=== PATIENT | male | born 1960 | race American Indian/Alaskan Native ===

== ENCOUNTER 2019-12-28 22:40 | Emergency (ER) | payer SELFPAY ==
--- NOTE | 2019-12-28 23:09 | Emergency Department Report ---
<DEENA ROSE - Last Filed: 12/29/19 14:22> ED Altered Mental Status HPI - General Stated Complaint: ALTERED Time Seen by Provider: 12/28/19 23:00 - Related Data Home Medications Medication Instructions Recorded Confirmed Last Taken Unobtainable 12/29/19 12/29/19 Unknown Allergies Allergy/AdvReac Type Severity Reaction Status Date / Time Unable to Assess Allergy Unverified 12/28/19 23:58 ED Past Medical Hx - Medications Home Medications: Home Medications Medication Instructions Recorded Confirmed Last Taken Type Unobtainable 12/29/19 12/29/19 Unknown History ED Course - Reevaluation(s) Reevaluation #2: 12/29/19 14:22 repeat alcohol pending. pt s/o to DR [employer]ar bardales to f/u and dispo once sober. pt does not have anyone to pick him up. - Lab Data Result diagrams: 12/28/19 23:20 12/28/19 23:20 ED Disposition Clinical Impression: Altered mental state Qualifiers: Altered mental status type: unspecified Qualified Code(s): R41.82 - Altered mental status, unspecified Acute alcohol intoxication Qualifiers: Complication of substance-induced condition: uncomplicated Qualified Code(s): F10.920 - Alcohol use, unspecified with intoxication, uncomplicated Disposition: DC-01 TO HOME OR SELFCARE Condition: Stable Instructions: Alcohol Intoxication (ED) Referrals: PRIMARY CARE,MD [Primary Care Provider] - 2-3 Days <FLAKO ESTRELLA - Last Filed: 12/29/19 17:23> - Lab Data Result diagrams: 12/28/19 23:20 12/28/19 23:20 ED Disposition Is pt being admited?: No <JUSTINE CHAUHAN III - Last Filed: 12/29/19 22:31> ED Altered Mental Status HPI - General PUI?: No Source: patient, EMS Mode of arrival: Ambulatory Limitations: Other - History of Present Illness Initial Comments: Patient is a 59-year-old male that presents emergency room for altered mental status. Patient patient states he was at his neighbor's house and he was drinking. Patient states he is here because he is drunk. Patient denies pain. Patient denies chest pain. Patient denies head trauma. Patient denies syncopal episode. Report from EMS states that the patient may have had a syncopal episode. MD Complaint: confusion, intoxication -: Sudden Consistency of Symptoms: waxing and waning Context: alcohol abuse Associated Symptoms: denies other symptoms ED Review of Systems ROS: Stated complaint: ALTERED Other details as noted in HPI Comment: All other systems reviewed and negative ED Past Medical Hx - Past Medical History Previous Medical History?: Yes Additional medical history: Alcoholism - Surgical History Past Surgical History?: No - Family History Family history: no significant - Social History Smoking Status: Current Every Day Smoker Substance Use Type: Alcohol ED Physical Exam - General Limitations: Other General appearance: alert, in no apparent distress - Head Head exam: Present: atraumatic, normocephalic - Eye Eye exam: Present: normal appearance - ENT ENT exam: Present: mucous membranes moist - Neck Neck exam: Present: normal inspection - Respiratory Respiratory exam: Present: normal lung sounds bilaterally. Absent: respiratory distress - Cardiovascular Cardiovascular Exam: Present: regular rate, normal rhythm. Absent: systolic murmur, diastolic murmur, rubs, gallop - GI/Abdominal GI/Abdominal exam: Present: soft, normal bowel sounds - Rectal Rectal exam: Present: deferred - Extremities Exam Extremities exam: Present: normal inspection - Back Exam Back exam: Present: normal inspection - Neurological Exam Neurological exam: Present: alert, oriented X3 - Psychiatric Psychiatric exam: Present: normal affect, normal mood - Skin Skin exam: Present: warm, dry, intact, normal color. Absent: rash - Assessment Assessment Interval: Baseline - Level of Consciousness 1a. Level of Consciousness: alert/keenly responsive - LOC Questions 1b. LOC Questions: answers both correctly - LOC Command 1c. LOC Commands: performs tasks correctly - Best Gaze 2. Best Gaze: normal - Visual 3. Visual: no visual loss - Facial Palsy 4. Facial Palsy: normal symmetrical movement - Motor Arm 5a. Motor Arm Left: no drift 5b. Motor Arm Right: no drift - Motor Leg 6a. Motor Leg Left: no drift 6b. Motor Leg Right: no drift - Limb Ataxia 7. Limb Ataxia: absent - Sensory 8. Sensory: normal - Best Language 9. Best Language: no aphasia - Dysarthria 10. Dysarthria: normal - Extinction and Inattention 11. Extinction/Inattention: no abnormality - Scoring Total Score: 0 Stroke Severity: No Stroke Symptoms ED Course Vital Signs 12/28/19 12/28/1912/27/20 22:48 22:56 23:00 Temperature 97.8 F Pulse Rate 75 63 72 Respiratory 14 13 13 Rate Blood Pressure 183/84 Blood Pressure 183/84 [Right] O2 Sat by Pulse 98 97 Oximetry 12/28/19 12/28/19 12/28/19 23:16 23:20 23:30 Temperature Pulse Rate 78 68 Respiratory 13 14 15 Rate Blood Pressure Blood Pressure [Right] O2 Sat by Pulse 98 Oximetry 12/28/19 12/29/19 12/29/19 23:46 00:00 00:16 Temperature Pulse Rate 64 80 71 Respiratory 18 17 Rate Blood Pressure 131/69 135/97 Blood Pressure [Right] O2 Sat by Pulse 95 Oximetry 12/29/19 12/29/19 12/29/19 00:30 00:45 01:00 Temperature Pulse Rate 78 60 65 Respiratory 12 13 11 L Rate Blood Pressure 135/97 127/59 136/66 Blood Pressure [Right] O2 Sat by Pulse Oximetry 12/29/19 12/29/19 12/29/19 01:15 01:30 01:50 Temperature Pulse Rate 69 68 89 Respiratory 12 12 Rate Blood Pressure 120/69 128/63 128/63 Blood Pressure [Right] O2 Sat by Pulse Oximetry 12/29/19 12/29/19 12/29/19 02:00 02:15 02:30 Temperature Pulse Rate 69 73 Respiratory 18 16 Rate Blood Pressure 138/70 146/79 157/75 Blood Pressure [Right] O2 Sat by Pulse 99 96 Oximetry 12/29/19 12/29/19 12/29/19 02:45 03:00 03:15 Temperature Pulse Rate 80 Respiratory 15 Rate Blood Pressure 149/69 158/76 162/73 Blood Pressure [Right] O2 Sat by Pulse 100 Oximetry 12/29/19 12/29/19 12/29/19 03:30 03:45 04:00 Temperature Pulse Rate Respiratory Rate Blood Pressure 150/75 143/74 137/71 Blood Pressure [Right] O2 Sat by Pulse Oximetry 12/29/19 12/29/19 12/29/19 04:15 04:30 04:45 Temperature Pulse Rate Respiratory Rate Blood Pressure 143/73 131/68 133/65 Blood Pressure [Right] O2 Sat by Pulse Oximetry 12/29/19 12/29/19 12/29/19 05:00 05:15 05:30 Temperature Pulse Rate 65 Respiratory 13 Rate Blood Pressure 129/62 131/62 137/69 Blood Pressure [Right] O2 Sat by Pulse 99 Oximetry 12/29/19 12/29/19 12/29/19 07:00 08:00 09:01 Temperature Pulse Rate Respiratory Rate Blood Pressure 147/65 147/72 150/68 Blood Pressure [Right] O2 Sat by Pulse Oximetry 12/29/19 12/29/19 12/29/19 09:24 11:40 12:00 Temperature Pulse Rate 83 81 Respiratory 16 10 L 14 Rate Blood Pressure 151/68 151/68 Blood Pressure [Right] O2 Sat by Pulse Oximetry 12/29/19 12/29/19 12/29/19 13:00 13:33 14:00 Temperature Pulse Rate 83 79 77 Respiratory 15 14 13 Rate Blood Pressure 151/68 154/61 Blood Pressure 157/70 [Right] O2 Sat by Pulse 98 Oximetry 12/29/19 12/29/19 12/29/19 15:00 16:00 17:00 Temperature Pulse Rate 80 71 74 Respiratory 16 14 13 Rate Blood Pressure 172/71 165/70 157/72 Blood Pressure [Right] O2 Sat by Pulse 99 97 98 Oximetry 12/29/19 17:30 Temperature Pulse Rate 70 Respiratory 18 Rate Blood Pressure Blood Pressure 157/72 [Right] O2 Sat by Pulse Oximetry - Reevaluation(s) Reevaluation #1: Patient is alert and oriented x3. Patient answering questions appropriately. I discussed all results and clinical findings with patient. I discussed plan of care with patient. Patient agrees with plan of care. Patient will remain in the ER until he is clinically and legally sober. 12/29/19 05:13 Patient signed out to oncoming physician, Dr. Rose for final disposition. Patient will remain in the ER until he is legally and clinically sober. 12/29/19 06:13 - Lab Data Result diagrams: 12/28/19 23:20 12/28/19 23:20 Lab Results 12/28/19 12/28/19 12/28/19 Range/Units 23:20 23:20 23:20 WBC 8.2 (4.5-11.0) K/mm3 RBC 4.64 (3.65-5.03) M/mm3 Hgb 14.1 (11.8-15.2) gm/dl Hct 42.9 (35.5-45.6) % MCV 93 (84-94) fl MCH 31 (28-32) pg MCHC 33 (32-34) % RDW 14.7 (13.2-15.2) % Plt Count 321 (140-440) K/mm3 Lymph % (Auto) 26.8 (13.4-35.0) % [place] % (Auto) 9.4 H (0.0-7.3) % Eos % (Auto) 0.4 (0.0-4.3) % Baso % (Auto) 1.3 (0.0-1.8) % Lymph # 2.2 (1.2-5.4) K/mm3 [place] # 0.8 (0.0-0.8) K/mm3 Eos # 0.0 (0.0-0.4) K/mm3 Baso # 0.1 (0.0-0.1) K/mm3 Seg Neutrophils % 62.1 (40.0-70.0) % Seg Neutrophils # 5.1 (1.8-7.7) K/mm3 Sodium 141 (137-145) mmol/L Potassium 4.1 (3.6-5.0) mmol/L Chloride 99.5 (98-107) mmol/L Carbon Dioxide 20 L (22-30) mmol/L Anion Gap 26 mmol/L BUN 13 (9-20) mg/dL Creatinine 1.0 (0.8-1.5) mg/dL Estimated GFR > 60 ml/min BUN/Creatinine Ratio 13 % Glucose 105 H (75-100) mg/dL Calcium 9.0 (8.4-10.2) mg/dL Total Bilirubin 0.30 (0.1-1.2) mg/dL AST 43 H (5-40) units/L ALT 14 (7-56) units/L Alkaline Phosphatase 121 (35-129) units/L Total Protein 8.1 (6.3-8.2) g/dL Albumin 4.3 (3.9-5) g/dL Albumin/Globulin Ratio 1.1 % Urine Color (Yellow) Urine Turbidity (Clear) Urine pH (5.0-7.0) Ur Specific [place] (1.003-1.030) Urine Protein (Negative) mg/dL Urine Glucose (UA) (Negative) mg/dL Urine Ketones (Negative) mg/dL Urine Blood (Negative) Urine Nitrite (Negative) Urine Bilirubin (Negative) Urine Urobilinogen (<2.0) mg/dL Ur Leukocyte Esterase (Negative) Urine WBC (Auto) (0.0-6.0) /HPF Urine RBC (Auto) (0.0-6.0) /HPF Urine Opiates Screen Urine Methadone Screen Ur Barbiturates Screen Ur Phencyclidine Scrn Ur Amphetamines Screen U Benzodiazepines Scrn Urine Cocaine Screen U Marijuana (THC) Screen Drugs of Abuse Note Plasma/Serum Alcohol 0.52 H (0-0.07) % 12/29/19 12/29/19 12/29/19 Range/Units 00:35 00:35 04:04 WBC (4.5-11.0) K/mm3 RBC (3.65-5.03) M/mm3 Hgb (11.8-15.2) gm/dl Hct (35.5-45.6) % MCV (84-94) fl MCH (28-32) pg MCHC (32-34) % RDW (13.2-15.2) % Plt Count (140-440) K/mm3 Lymph % (Auto) (13.4-35.0) % [place] % (Auto) (0.0-7.3) % Eos % (Auto) (0.0-4.3) % Baso % (Auto) (0.0-1.8) % Lymph # (1.2-5.4) K/mm3 [place] # (0.0-0.8) K/mm3 Eos # (0.0-0.4) K/mm3 Baso # (0.0-0.1) K/mm3 Seg Neutrophils % (40.0-70.0) % Seg Neutrophils # (1.8-7.7) K/mm3 Sodium (137-145) mmol/L Potassium (3.6-5.0) mmol/L Chloride (98-107) mmol/L Carbon Dioxide (22-30) mmol/L Anion Gap mmol/L BUN (9-20) mg/dL Creatinine (0.8-1.5) mg/dL Estimated GFR ml/min BUN/Creatinine Ratio % Glucose (75-100) mg/dL Calcium (8.4-10.2) mg/dL Total Bilirubin (0.1-1.2) mg/dL AST (5-40) units/L ALT (7-56) units/L Alkaline Phosphatase (35-129) units/L Total Protein (6.3-8.2) g/dL Albumin (3.9-5) g/dL Albumin/Globulin Ratio % Urine Color Colorless (Yellow) Urine Turbidity Clear (Clear) Urine pH 6.0 (5.0-7.0) Ur Specific [place] 1.003 (1.003-1.030) Urine Protein <15 mg/dl (Negative) mg/dL Urine Glucose (UA) Neg (Negative) mg/dL Urine Ketones Neg (Negative) mg/dL Urine Blood Sm (Negative) Urine Nitrite Neg (Negative) Urine Bilirubin Neg (Negative) Urine Urobilinogen < 2.0 (<2.0) mg/dL Ur Leukocyte Esterase Neg (Negative) Urine WBC (Auto) 1.0 (0.0-6.0) /HPF Urine RBC (Auto) 0.0 (0.0-6.0) /HPF Urine Opiates Screen Presumptive negative Urine Methadone Screen Presumptive negative Ur Barbiturates Screen Presumptive negative Ur Phencyclidine Scrn Presumptive negative Ur Amphetamines Screen Presumptive negative U Benzodiazepines Scrn Presumptive negative Urine Cocaine Screen Presumptive negative U Marijuana (THC) Screen Presumptive negative Drugs of Abuse Note Disclamer Plasma/Serum Alcohol 0.36 H (0-0.07) % 12/29/19 12/29/19 Range/Units 09:52 14:57 WBC (4.5-11.0) K/mm3 RBC (3.65-5.03) M/mm3 Hgb (11.8-15.2) gm/dl Hct (35.5-45.6) % MCV (84-94) fl MCH (28-32) pg MCHC (32-34) % RDW (13.2-15.2) % Plt Count (140-440) K/mm3 Lymph % (Auto) (13.4-35.0) % [place] % (Auto) (0.0-7.3) % Eos % (Auto) (0.0-4.3) % Baso % (Auto) (0.0-1.8) % Lymph # (1.2-5.4) K/mm3 [place] # (0.0-0.8) K/mm3 Eos # (0.0-0.4) K/mm3 Baso # (0.0-0.1) K/mm3 Seg Neutrophils % (40.0-70.0) % Seg Neutrophils # (1.8-7.7) K/mm3 Sodium (137-145) mmol/L Potassium (3.6-5.0) mmol/L Chloride (98-107) mmol/L Carbon Dioxide (22-30) mmol/L Anion Gap mmol/L BUN (9-20) mg/dL Creatinine (0.8-1.5) mg/dL Estimated GFR ml/min BUN/Creatinine Ratio % Glucose (75-100) mg/dL Calcium (8.4-10.2) mg/dL Total Bilirubin (0.1-1.2) mg/dL AST (5-40) units/L ALT (7-56) units/L Alkaline Phosphatase (35-129) units/L Total Protein (6.3-8.2) g/dL Albumin (3.9-5) g/dL Albumin/Globulin Ratio % Urine Color (Yellow) Urine Turbidity (Clear) Urine pH (5.0-7.0) Ur Specific [place] (1.003-1.030) Urine Protein (Negative) mg/dL Urine Glucose (UA) (Negative) mg/dL Urine Ketones (Negative) mg/dL Urine Blood (Negative) Urine Nitrite (Negative) Urine Bilirubin (Negative) Urine Urobilinogen (<2.0) mg/dL Ur Leukocyte Esterase (Negative) Urine WBC (Auto) (0.0-6.0) /HPF Urine RBC (Auto) (0.0-6.0) /HPF Urine Opiates Screen Urine Methadone Screen Ur Barbiturates Screen Ur Phencyclidine Scrn Ur Amphetamines Screen U Benzodiazepines Scrn Urine Cocaine Screen U Marijuana (THC) Screen Drugs of Abuse Note Plasma/Serum Alcohol 0.18 H 0.02 (0-0.07) % - Radiology Data Radiology results: report reviewed No acute findings on head CT. - Medical Decision Making Patient is a 59-year-old male that presents emergency room with complaints of altered mental status. Patient altered mental status secondary to acute intoxication. Patient states he drinks every day. Patient had labs done. Patient's labs are essentially unremarkable except for elevated alcohol level. Patient remained in the ER until he is clinically and legally sober. Patient discharged after reaching sobriety. , - Differential Diagnosis Altered mental status, acute intoxication. Critical care attestation.: If time is entered above; I have spent that time in minutes in the direct care of this critically ill patient, excluding procedure time. ED Disposition Is pt being admited?: No Does the pt Need Aspirin: No Time of Disposition: 22:31
[2019-12-28] MEDS ORDERED: SODIUM CHLORIDE 0.9% 1000 ML 1,000 ML IV ONE (23:11)
[2019-12-28] MEDS ORDERED: THIAMINE 100 MG, FOLIC ACID 1 MG, MULTIPLE VITAMIN INJ, ADULT 10 ML in SODIUM CHLORIDE ... IV ONE (23:31)
[2019-12-28 23:52] LABS: Basophils # (Auto) 0.1 K/mm3 (0.0-0.1); Basophils % (Auto) 1.3 % (0.0-1.8); Eosinophils % (Auto) 0.4 % (0.0-4.3); Hematocrit 42.9 % (35.5-45.6); Hemoglobin 14.1 gm/dl (11.8-15.2); Lymphocytes # (Auto) 2.2 K/mm3 (1.2-5.4); Lymphocytes % (Auto) 26.8 % (13.4-35.0); Mean Corpuscular HGB Conc 33 % (32-34); Mean Corpuscular Volume 93 fl (84-94); Monocytes # (Auto) 0.8 K/mm3 (0.0-0.8); Monocytes % (Auto) 9.4 % (0.0-7.3); Platelet Count 321 K/mm3 (140-440); Red Blood Count 4.64 M/mm3 (3.65-5.03); Red Cell Distribution Width 14.7 % (13.2-15.2)
[2019-12-29 00:15] LABS: Alanine Aminotransferase 14 units/L (7-56); Albumin 4.3 g/dL (3.9-5); BUN/Creatinine Ratio 13; Blood Urea Nitrogen 13 mg/dL (9-20); Hemolysis Index 28
[2019-12-29 00:52] LABS: Bilirubin,Urine NEG (Negative); Blood,Urine SM (Negative); Color,Urine Colorless (Yellow); Protein,Urine <15 mg/dL mg/dL (Negative); Urobilinogen,Urine < 2.0 mg/dL (<2.0)
[2019-12-29 01:04] LABS: Amphetamine Screen,Urine PRESUMPTIVE NEGATIVE; Benzodiazepines Screen,Urine PRESUMPTIVE NEGATIVE; Cannabinoid Screen,Urine PRESUMPTIVE NEGATIVE; Cocaine Screen,Urine PRESUMPTIVE NEGATIVE; Methadone Screen,Urine PRESUMPTIVE NEGATIVE; Opiate Screen,Urine PRESUMPTIVE NEGATIVE
[2019-12-29] MEDS ORDERED: SODIUM CHLORIDE 0.9% 1000 ML 1,000 ML IV ONE (01:56)
--- NOTE | 2019-12-29 02:05 | Cat Scan Report ---
CT HEAD WITHOUT CONTRAST INDICATION: MAIN: ams, etoh TECHNIQUE: Axial slices were obtained through the head. Coronal and sagittal reformatted images were obtained. COMPARISON: None available. FINDINGS: There is no intracranial hemorrhage or extra-axial fluid collection. Ventricles, basilar cisterns, an d sulci appear within normal limits for age. There is no mass lesion or midline shift. No acute neela torial infarct is identified. There is mild microangiopathic change. Bone windows demonstrate no acute osseous abnormality. There is opacification of the imaged portions of the maxillary sinuses and the ethmoid air cells. TECHNIQUE: All CT scans at this facility use dose modulation, iterative reconstruction, automated ex posure control, weight based dosing, when appropriate, to reduce radiation dose to as low as reasonab ly achievable. IMPRESSION: 1. No acute intracranial abnormality. There is mild microangiopathic change. There is maxillary and ethmoid sinus disease. Signer Name: Rd Godinez MD Signed: 12/29/2019 2:01 AM Workstation Name: [id number]
[2019-12-29 17:32] VITALS: BP 157/72
== END 2019-12-29 17:35 | disposition home or self-care (01) ==
LOC: ED 22:40
DX: R41.82 Altered mental status, unspecified (principal); F10.129 Alcohol abuse with intoxication, unspecified; F17.200 Nicotine dependence, unspecified, uncomplicated
CPT/HCPCS: 36415; 70450; 80053; 80307; 81001; 85025; 96365; 96366; 99285; J3411; J7030; 80320; G0480